=== PATIENT | female | born 1975 | race Caucasian/White ===

== ENCOUNTER 2021-11-23 15:48 | Outpatient (CLI) | payer OTHER, SELFPAY ==
[2021-11-23 21:55] LABS: Iron* 80 ug/dL (37-170)
[2021-11-23 22:05] LABS: Percent Iron Saturation 24 % (20-50); Total Iron Binding Capacity 328 ug/dL (265-497)
[2021-11-23 22:17] LABS: TSH With Reflex to FT4* 0.651 uIU/mL (0.270-4.200)
[2021-11-25 23:33] LABS: Follicle Stimulating Hormone 77.2 IU/L
== END 2021-11-23 15:49 | disposition home or self-care (01) ==
PROVIDERS: PCP Physician Assistant Medical; Visit Provider Family Medicine
DX: Z01.419 Encounter for gynecological examination (general) (routine) without abnormal findings (principal); E03.9 Hypothyroidism, unspecified; N91.2 Amenorrhea, unspecified; D50.9 Iron deficiency anemia, unspecified
CPT/HCPCS: 83001; 83540; 83550; 84443

== ENCOUNTER 2022-10-26 16:03 | Outpatient (CLI) | payer OTHER, SELFPAY | END 2022-10-26 16:04 | disposition home or self-care (01) | LOC: FRMREF 16:04 | PROVIDERS: PCP Physician Assistant Medical; Visit Provider Registered Nurse | DX: Z01.419 Encounter for gynecological examination (general) (routine) without abnormal findings (principal); E03.9 Hypothyroidism, unspecified | CPT/HCPCS: 84443 ==

== ENCOUNTER 2023-02-09 13:38 | Outpatient (CLI) | payer OTHER, SELFPAY ==
--- NOTE | 2023-02-09 14:00 | CRLHL7_ITS ---
For Patients: As a result of the Century Cures Act, medical imaging exams and procedure reports are released immediately into your electronic medical record. You may view this report before your referring provider. If you have questions, please contact your health care provider. BILATERAL SCREENING MAMMOGRAM WITH COMPUTER-AIDED DETECTION AND TOMOSYNTHESIS TECHNIQUE: CC and MLO views were obtained. These mammographic images have been obtained using full-field digital technique. These mammographic images were interpreted with the benefit of computer-aided detection. Breast tomosynthesis was used in this interpretation. COMPARISON FILM: 04/26/18, 04/30/15 diagnostic, 04/23/15. FINDINGS: The breasts are heterogeneously dense, which may obscure small masses. IMPRESSION: There is no radiographic evidence for malignancy. ASSESSMENT: BI-RADS Category 2: Benign RECOMMENDATION: Routine screening mammogram in 1 year. A lay language report of this examination will be provided to the patient. ORLIN KENT M.D. Diagnostic Radiologist [email or web address] Transcribed: 5:[address]/Dictated by: Orlin Kent MD @ 02/12/2023 5:29:00 PM (Electronically Signed)
== END 2023-02-09 13:39 | disposition home or self-care (01) ==
LOC: MAMMO 13:41
PROVIDERS: PCP Physician Assistant Medical; Visit Provider Registered Nurse
DX: Z12.31 Encounter for screening mammogram for malignant neoplasm of breast (principal); R92.2 Inconclusive mammogram
CPT/HCPCS: 77063; 77067

== ENCOUNTER 2024-01-24 15:17 | Outpatient (CLI) | payer BC, SELFPAY | END 2024-01-24 15:18 | disposition home or self-care (01) | LOC: FRMREF 15:17 | PROVIDERS: PCP Physician Assistant Medical; Visit Provider Registered Nurse | DX: Z01.419 Encounter for gynecological examination (general) (routine) without abnormal findings (principal); E03.9 Hypothyroidism, unspecified | CPT/HCPCS: 84443 ==

== ENCOUNTER 2024-02-14 12:30 | Outpatient (CLI) | payer BC, SELFPAY ==
--- NOTE | 2024-02-14 14:25 | W.ANESCHARGE ---
Anesthesia Charges Start Date/Time Anesthesia Start Date: 02/14/24 Anesthesia Start Time: 13:55 Stop Date/Time Anesthesia Stop Date: 02/14/24 Anesthesia Stop Time: 14:22
== END 2024-02-14 12:31 | disposition home or self-care (01) ==
LOC: OP CLINIC 12:31
PROVIDERS: PCP Physician Assistant Medical; Visit Provider Surgery
DX: Z12.11 Encounter for screening for malignant neoplasm of colon (principal); D12.5 Benign neoplasm of sigmoid colon
CPT/HCPCS: 00811; 45385; 88305; J2704

== ENCOUNTER 2024-05-27 15:01 | Outpatient (CLI) | payer BC, SELFPAY ==
--- NOTE | 2024-05-27 15:20 | CRLHL7_ITS ---
For Patients: As a result of the Century Cures Act, medical imaging exams and procedure reports are released immediately into your electronic medical record. You may view this report before your referring provider. If you have questions, please contact your health care provider. BILATERAL SCREENING MAMMOGRAM WITH COMPUTER-AIDED DETECTION AND TOMOSYNTHESIS TECHNIQUE: CC, MLO and Implant displaced views were obtained. These mammographic images have been obtained using full-field digital technique. These mammographic images were interpreted with the benefit of computer-aided detection. Breast Tomosynthesis was used in this interpretation. COMPARISON FILM: 02/09/23, 04/26/18, 04/30/15. FINDINGS: The breasts are heterogeneously dense, which may obscure small masses. IMPRESSION: There is no radiographic evidence for malignancy. ASSESSMENT: BI-RADS Category 2: Benign RECOMMENDATION: Routine screening mammogram in 1 year. A lay language report of this examination will be provided to the patient. Orlin Recinos M.D. Diagnostic Radiologist [email or web address] SP/Dictated by: Orlin Recinos MD @ 05/28/2024 9:34:00 AM (Electronically Signed)
== END 2024-05-27 15:02 | disposition home or self-care (01) ==
LOC: MAMMO 15:02
PROVIDERS: PCP Physician Assistant Medical; Visit Provider Registered Nurse
DX: Z12.31 Encounter for screening mammogram for malignant neoplasm of breast (principal); R92.333 Mammographic heterogeneous density, bilateral breasts
CPT/HCPCS: 77063; 77067

== ENCOUNTER 2024-07-07 16:21 | Outpatient (CLI) | payer BC, SELFPAY | END 2024-07-07 16:22 | disposition home or self-care (01) | LOC: NFLDREF 07-11 08:06 | PROVIDERS: Visit Provider Nurse Practitioner Family | DX: N89.8 Other specified noninflammatory disorders of vagina (principal); N76.0 Acute vaginitis; B96.89 Other specified bacterial agents as the cause of diseases classified elsewhere | CPT/HCPCS: 87086 ==